=== PATIENT | male | born 1950 | race Caucasian/White ===

== ENCOUNTER 2017-05-13 09:02 | Observation (INO) | payer BC ==
[2017-05-11 15:49] LABS: BASOPHILS % 0.4 % (0.0-1.0); EOSINOPHILS # (AUTO) 0.2 (0.0-0.4); EOSINOPHILS % 3.9 % (0.0-6.0); HEMATOCRIT 38.9 % (38.2-49.6); HEMOGLOBIN 13.8 g/dL (14.0-18.0); LYMPHOCYTES # (AUTO) 0.4 (1.0-3.2); LYMPHOCYTES % 7.5 % (18.0-39.1); MEAN CORPUSCULAR HEMOGLOBIN 35.8 pg (28-32); MEAN CORPUSCULAR HGB CONC 35.5 g/dL (31-35); MEAN CORPUSCULAR VOLUME 100.8 fL (81-99); MONOCYTES # (AUTO) 0.6 (0.2-0.8); MONOCYTES % 11.3 % (4.4-11.3); NEUTROPHILS # (AUTO) 4.3 (2.1-6.9); NEUTROPHILS % 76.4 % (38.7-80.0); PLATELET COUNT 198 x10e3/uL (140-360); RED BLOOD COUNT 3.86 x10e6/uL (4.3-5.7)
[2017-05-11 15:57] LABS: INR 0.81; PROTHROMBIN TIME 11.6 seconds (11.9-14.5)
[2017-05-11 15:58] LABS: PARTIAL THROMBOPLASTIN TIME 26.6 seconds (23.8-35.5)
[2017-05-11 16:01] LABS: ANION GAP 11.7 mmol/L (8-16); BLOOD UREA NITROGEN 20 mg/dL (7-26); BUN/CREATININE RATIO 24 (6-25); CALCIUM 8.9 mg/dL (8.4-10.2); CARBON DIOXIDE 29 mmol/L (22-29); CHLORIDE 100 mmol/L (98-107); CREATININE, SERUM 0.82 mg/dL (0.72-1.25); EST GLOMERULAR FILTRATION RATE > 60 ML/MIN (60-); GLUCOSE 210 mg/dL (74-118); POTASSIUM 3.7 mmol/L (3.5-5.1); SODIUM 137 mmol/L (136-145)
--- NOTE | 2017-05-11 16:12 | Diagnostic Imaging Report ---
PROCEDURE: Frontal and lateral views of the chest. COMPARISON: None. INDICATIONS: PRE OP FINDINGS: Lines/tubes: None. Lungs: The lungs are well inflated and clear. There is no evidence of pneumonia or pulmonary edema. Pleura: There is no pleural effusion or pneumothorax. Heart and mediastinum: The heart and the mediastinum are normal. Bones: No acute bony abnormality. Age-indeterminate compression deformity of likely the T10 vertebral body, with rightward curvature of the lower thoracic spine. IMPRESSION: 1. No acute cardiopulmonary abnormalities. 2. Age-indeterminate compression deformity of likely T10 vertebral body Barrington Mary M.D. Dictated by: Barrington Mary M.D. on 05/11/2017 at 16:22 Electronically approved by: Barrington Mary M.D. on 05/11/2017 at 16:22
[~2017-05-13] VITALS: Ht 170.2 cm; Wt 130.2 kg
[~2017-05-13 09:02] MED LIST: ACETAMINOPHEN 1000 MG/100 ML 100 ML IV ONE; ALENDRONATE SOD70 MG PO; ALEVE220 MG PO; AMLODIPINE-BEN1 EAC4 PO; ASPIR-LOW81 MG PO; B12 PO; BACITRACIN 50,000 UNIT VIAL ONE; BIOFLEX TABLET1 EACH PO; BYDUREON2 MG INJ; CALCIUM PO; CEFAZOLIN SOD 2 GM/D5W 50ML 50 ML IV ONE; CHROMIUM PICO1 EACH PO; CHROMIUM PICO200 MC1 PO; FLUOXETINE HCL20 M1 PO; GELATIN SPONGE SZ 100 ONE; INVOKANA PO; LIDOCAINE 1% W/EPINEPHRINE 20 ML VIAL ONE; LIDOCAINE HCL (LTA) 4 ML SOLN ONE; LOVAZA1 GM PO; METFORMIN PO; NIACIN500 M2 PO; OSTEO BI-FLEX1 EAC2 PO; THROMBIN FOR SOLN 5,000 UNIT VIAL ONE; TRIBENZOR 40-11 EACH PO; TRULICITY SQ; VITAMIN D3 PO; XIGDUO PO; [UNRECOGNIZED DRUG - OTHER]
--- OUTSIDE RECORDS SUMMARY | 2017-05-13 09:04 | XMS REPORT ---
Author [facility] Address Unknown Phone Unavailable Care Team Providers Care Bread Room Hand Name Role Phone PAKO DELGADO Unavailable Unavailable Problems This patient has no known problems. Allergies, Adverse Reactions, Alerts This patient has no known allergies or adverse reactions. Medications This patient has no known medications. Results Test Description Test Time Test Comments Text Results Atomic Results Result Comments CHEST 2 VIEWS [place] [address] Patient Name: JOSETTE LINN MR #: [id number] : 1950 Age/Sex: 66/M Req #: [id number] Adm Physician: Ordered by: PAKO DELGADO MD Report #: [id number] Location: OR Room/Bed: Procedure: [id number] DX/CHEST 2 VIEWS Exam Date: 05/11/17 Exam Time : 1545 REPORT STATUS: Signed PROCEDURE: Frontal and lateral views of the chest. COMPARISON: None. INDICATIONS: PRE OP FINDINGS: Lines/tubes: None. Lungs: The lungs are well inflated and clear. There is no evidence of pneumonia or pulmonary edema. Pleura: There is no pleural effusion or pneumothorax. Heart and mediastinum: The heart and the mediastinum are normal. Bones: No acute bony abnormality. Age-indeterminate compression deformity of likely the T10 vertebral body, with rightward curvature of the lower thoracic spine. IMPRESSION: 1. No acute cardiopulmonary abnormalities. 2. Age-indeterminate compression deformity of likely T10 vertebral body Faye Mary M.D. Dictated by: Faye Mary M.D. on 05/11/2017 at 16:22 Electronically approved by: Faye Mary M.D. on 05/11/2017 at 16 :22 Dictated By: FAYE MARY MD 1622 Transcribed By: SHY on 05/11/17 1622 COPY TO: PAKO DELGADO MD
[2017-05-13] MEDS: LACTATED RINGER'S 1,000 ML IV SCH ×2 (10:18→18:38)
[2017-05-13] MEDS ORDERED: CARISOPRODOL 350 MG TAB PO PRN (10:30)
[2017-05-13] MEDS ORDERED: CEPACOL SORE THROAT LOZENGES PO PRN (10:30)
[2017-05-13] MEDS ORDERED: ACETAMINOPHEN 325 MG TAB PO PRN (10:30)
[2017-05-13] MEDS ORDERED: ONDANSETRON HCL INJ 2 MG/ML VIAL IV PRN (10:30)
[2017-05-13] MEDS ORDERED: OXYCODONE/ACETAMINOPHEN 5-325 1 EACH TABLET PO PRN (10:30)
[2017-05-13] MEDS ORDERED: MORPHINE SULFATE 5 MG/ML VIAL IM PRN (10:30)
[2017-05-13] MEDS ORDERED: PROMETHAZINE HCL (IM) 25 MG/ML VIAL IM PRN (10:30)
[2017-05-13] MEDS ORDERED: HYDROMORPHONE 2MG/ML INJ IV PRN (10:30)
[2017-05-13] MEDS ORDERED: MAGNESIUM/ALUMINUM/SIMETHICONE 30 ML UDC PO PRN (10:30)
[2017-05-13 11:33] VITALS: BP 171/81
[2017-05-13 11:39] VITALS: BP 171/81
[2017-05-13 11:49] VITALS: BP 171/81
--- NOTE | 2017-05-13 13:32 | Operative Report ---
DATE OF PROCEDURE: May 13, 2017 PREOPERATIVE DIAGNOSIS: L3-4 severe spinal stenosis with neurogenic claudication, M48.062. POSTOPERATIVE DIAGNOSIS: L3-4 severe spinal stenosis with neurogenic claudication, M48.062. PROCEDURES 1. L3 bilateral decompressive laminectomy and L3-4 bilateral medial facetectomies, 40497. 2. L4 bilateral partial decompressive laminectomy, 93892. ANESTHESIA: General. INDICATIONS: The patient is a man who presents with severe L3-4 spinal stenosis and neurogenic claudication. He was taken to the operating room for bilateral decompressive laminectomy. PROCEDURE: After induction of general anesthesia, the patient was placed on the operating table in prone position over a Karl frame. Lumbar region was prepped and draped in a sterile fashion. A preoperative x-ray was obtained. A small midline incision was created. Lumbar fascia was opened along the midline, and a subperiosteal dissection was carried out to expose the spinous processes and laminae of L3 and L4. A 2nd x-ray confirmed correct localization. Portions of the spinous processes were resected with a Leksell rongeur. The operating microscope was brought in. Retraction was maintained with an Aesculap speculum retractor. A high-speed drill equipped with a 5-mm jasmina bur was used to drill the inferior aspect of the lamina of L3, the superior rim of the lamina of L4, and the medial aspect of the L3-4 facet joints bilaterally. The markedly hypertrophic ligamentum flavum was carefully dissected from the dura and resected to expose and decompress the dura. The facet joints were then undercut, and the hypertrophic ligamentum flavum in the lateral recesses was resected to fully expose and decompress the traversing L4 nerve roots bilaterally. After satisfactory decompression had been achieved, the wound was irrigated with Bacitracin solution and closed in multiple layers with #0 and 2-0 Vicryl sutures. The skin was closed with 3-0 Monocryl sutures in subcuticular fashion. Steri-Strips and dressing were applied. The patient was awakened, extubated and taken to the postanesthesia care unit in stable condition. No intraoperative complications were encountered. Estimated blood loss was 20 mL. Job#: [id number]
[2017-05-13] MEDS ORDERED: CEFAZOLIN SOD 1 GM/NS 50ML 50 ML IV SCH (14:00)
[2017-05-13 15:20] VITALS: BP 183/85
[2017-05-13] MEDS: CEFAZOLIN SOD 1 GM VIAL IV SCH ×2 (15:42→23:53)
[2017-05-13] MEDS: AMLODIPINE BESYLATE 10 MG TAB PO SCH (16:08)
[2017-05-13 16:53] VITALS: BP 154/79
[2017-05-13] MEDS ORDERED: EYE LUBRICANT OPTH OINT 3.5GM TUBE OP ONE (18:30)
[2017-05-13] MEDS ORDERED: GLYCOPYRROLATE INJ 1MG/ 5 ML SYR ONE (18:30)
[2017-05-13] MEDS ORDERED: NEOSTIGMINE 5 MG/5ML SYR ONE (18:30)
[2017-05-13] MEDS ORDERED: DEXAMETHASONE SOD PHOS INJ 4 MG/ML VIAL ONE (18:30)
[2017-05-13] MEDS ORDERED: ONDANSETRON HCL INJ 2 MG/ML VIAL ONE (18:30)
[2017-05-13] MEDS ORDERED: SEVOFLURANE INHAL SOLN 250 ML PEN BTL ONE (18:30)
[2017-05-13] MEDS ORDERED: LIDOCAINE HCL 2% LOCAL INJ 5 ML SDV VIAL INJ ONE (18:30)
[2017-05-13] MEDS ORDERED: ROCURONIUM BROMIDE 10 MG/ML 5ML VIAL ONE (18:30)
[2017-05-13] MEDS ORDERED: PROPOFOL IV EMULSION 10 MG/ML 20 ML VIAL ONE (18:30)
[2017-05-13] MEDS ORDERED: FENTANYL CITRATE/PF 100MCG/2 ML INJ ONE (19:07)
[2017-05-13] MEDS ORDERED: MIDAZOLAM HCL 2 MG/2 ML VIAL ONE (19:07)
[2017-05-13 20:00] VITALS: BP 135/72
[2017-05-13] MEDS ORDERED: ZOLPIDEM TARTRATE 5 MG TAB PO PRN (21:00)
[2017-05-14] VITALS: BP 116/58
[2017-05-14] MEDS ORDERED: DIPHENHYDRAMINE HCL INJ 50 MG/ML VIAL IV PRN (02:15)
[2017-05-14] MEDS ORDERED: XIGDUO PO SCH (08:00)
[2017-05-14] MEDS: AMLODIPINE BESYLATE 10 MG TAB PO SCH (08:17)
[2017-05-14] MEDS: CEFAZOLIN SOD 1 GM VIAL IV SCH (08:23)
[2017-05-14 08:27] VITALS: BP 151/80
[2017-05-14] MEDS ORDERED: NIACIN 500 MG TABSR PO SCH (09:00)
[2017-05-14] MEDS ORDERED: [UNRECOGNIZED DRUG - OTHER] PO SCH (09:00)
== END 2017-05-14 10:31 | disposition home or self-care (01) ==
LOC: OR 09:02 → IMCU 10:45
PROVIDERS: ADMIT Neurological Surgery; ATTEND Neurological Surgery
DX: M48.062 Spinal stenosis, lumbar region with neurogenic claudication (principal); G95.19 Other vascular myelopathies; I10 Essential (primary) hypertension; E66.9 Obesity, unspecified; Z68.42 Body mass index [BMI] 45.0-49.9, adult; E11.9 Type 2 diabetes mellitus without complications; Z85.46 Personal history of malignant neoplasm of prostate
CPT/HCPCS: 36415 ×2; 63047; 63048; 71046; 72020; 80048; 82948; 85025; 85610; 85730; 86850; 86900; 88304; 88311; 93005; 96360; 96361; G0378 ×2; J0690 ×2; J1100; J1170; J1200; J2001; J2250; J2405